=== PATIENT | male | born 1960 | race Caucasian/White ===

== ENCOUNTER 2016-10-16 20:41 | Emergency (ER) | payer MEDICARE, OTHER, SELFPAY ==
[~2016-10-16 20:41] MED LIST: *DENIES; ASAB PO; ASABAYER PO; BACDS PO; BC HEADACHE PO; BISR PR; BUM1 PO; CARD60 PO; CEFT5 PO; CIP5 PO; CLEOCIN300 MG PO; DIGITEK0.125 MG PO; DIGITEK0.25 MG PO; ELIQUIS 5 MG TAB5 MG PO; FLUCON1 PO; FOLIC PO; IODOSORB TOP; K-TABS10 MEQ PO; LOP25 PO; MIRALAXPKT PO; MULTIVITAMI1 PO; P10 PO; PROTONIX PO; ROCEPHIN IM; ROXICODONE30 MG PO; SOMATAB PO; SYN.025B PO; T PO
[2016-10-16 20:47] LABS: BASOPHILS 0.5 %; BASOPHILS ABSOLUTE 0.05 10/3/uL (0.0-0.16); EOSINOPHILS 0.4 %; EOSINOPHILS ABSOLUTE 0.04 10/3/uL (0.0-0.53); ER CBC TAT 0 Hrs 03 Mins; HEMATOCRIT 39.9 % (40.0-51.0); HEMOGLOBIN 13.6 g/dL (13.6-17.8); IMMATURE GRANULOCYTES 0.2 %; IMMATURE GRANULOCYTES ABSOLUTE 0.02 10/3/uL (0.0-0.11); LYMPHOCYTES 10.3 %; LYMPHOCYTES ABSOLUTE 1.02 10/3/uL (0.67-4.30); MANUAL DIFF NO %; MEAN CORPUS HGB CONC 34.1 g/dL (32.0-36.0); MEAN CORPUSCULAR HEMOGLOB 31.2 pg (26.0-34.0); MEAN CORPUSCULAR VOLUME 91.5 fL (80-100); MEAN PLATELET VOLUME 8.8 fL (9.2-13.0); MONOCYTES 8.6 %; MONOCYTES ABSOLUTE 0.85 10/3/uL (0.21-1.20); NEUTROPHILS ABSOLUTE 7.96 10/3/uL (2.02-8.40); PLATELET COUNT 294 10/3/uL (150-400); RED CELL COUNT 4.36 10/6/uL (4.7-6.1); WHITE BLOOD CELLS 9.9 10/3/uL (4.5-10.5)
[2016-10-16 20:56] LABS: ASCORBIC ACID (UR NOT ORDER) NEG (NEG); BILIRUBIN, URINE NEGATIVE (NEG); ER URINALYSIS TAT 0 Hrs 13 Mins; KETONE, URINE NEGATIVE (NEG); LEUKOCYTE ESTERASE(NOT OR LARGE (NEG); NITRITE (URINE) POS (NEG); WBC (NOT ORDERED) (RFLEX) 177 (0-5)
[2016-10-16 21:02] LABS: A/G RATIO 0.8 (0.7-1.9); ALBUMIN 2.8 G/DL (3.5-5.0); BUN (BLOOD UREA NITROGEN) 8 MG/DL (6-23); CALCIUM, SERUM 8.7 MG/DL (8.5-10.4); CHLORIDE, SERUM 107 MMOL/L (96-112); CO2 (CARBON DIOXIDE) 28 MMOL/L (24-34); CREATININE 0.83 MG/DL (0.70-1.30); GFR AFRICAN AMERICAN 115 ML/MIN (>=60); GFR NON AFRICAN AMERICAN 99 ML/MIN (>=60); GLOBULIN 3.6 G/DL (2.5-4.1); POTASSIUM, SERUM 3.4 MMOL/L (3.5-5.3); SGOT(AST) 16 U/L (5-40); SGPT(ALT) 23 U/L (5-65); SODIUM, SERUM 141 MMOL/L (135-148); TOTAL BILIRUBIN 1.5 MG/DL (0-1.2); TOTAL PROTEIN 6.4 G/DL (6.0-8.5)
[2016-10-16 21:03] LABS: ALKALINE PHOSPHATASE 93 U/L (45-117); GLUCOSE, SERUM 131 MG/DL (60-99)
[2017-02-10] MEDS ORDERED: ROXICODONE30 MG PO (21:25)
[2017-02-23] MEDS ORDERED: XARELTO15 MG PO (10:31)
[2017-02-23] MEDS ORDERED: X5 PO (10:33)
[2017-02-23] MEDS ORDERED: CORDARONE PO ×2 (10:35→10:37)
[2017-02-23] MEDS ORDERED: CIP5 PO (10:35)
[2017-02-23] MEDS ORDERED: CORTEF20 MG PO (10:38)
[2017-02-23] MEDS ORDERED: MIRALAX POWDER1 PKT PO (10:40)
[2017-03-05] MEDS ORDERED: DSS PO (11:10)
[2017-03-05] MEDS ORDERED: ZYVOXPO PO (11:10)
[2017-03-05] MEDS ORDERED: MIRALAX POWDER1 PKT PO (11:11)
[2017-03-06] MEDS ORDERED: D.O.S.100 MG PO (14:10)
[2017-03-06] MEDS ORDERED: CORDARONE PO (14:10)
[2017-03-06] MEDS ORDERED: ZYVOXPO PO (14:11)
[2017-03-06] MEDS ORDERED: CORTEF20 MG PO (14:11)
[2017-03-06] MEDS ORDERED: ROXICODONE30 MG PO (14:12)
[2017-03-06] MEDS ORDERED: MIRALAX POWDER1 PKT PO (14:12)
[2017-03-06] MEDS ORDERED: XARELTO15 MG PO (14:13)
[2017-03-06] MEDS ORDERED: XARELTO20 MG PO (14:13)
[2017-03-13] MEDS ORDERED: L40 PO (12:14)
[2017-03-13] MEDS ORDERED: PROAMAT5 PO (12:15)
== END 2016-10-16 23:15 | disposition home or self-care (01) ==
LOC: ER 20:41
PROVIDERS: Emergency Medicine
DX: R11.10 Vomiting, unspecified (principal); R19.7 Diarrhea, unspecified; N39.0 Urinary tract infection, site not specified; Z88.1 Allergy status to other antibiotic agents; Z88.8 Allergy status to other drugs, medicaments and biological substances; Z79.82 Long term (current) use of aspirin; Z79.899 Other long term (current) drug therapy
CPT/HCPCS: 80053; 81001; 83690; 85025; 87077; 87086; 87186; 96374; 99284; A9270-GY; J1170; J2405

== ENCOUNTER 2016-11-12 09:51 | Inpatient (IN) | payer MEDICARE, OTHER, SELFPAY ==
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
--- NOTE | ~2016-11-12 | DS ---
Discharge Summary [place] [id number] [facility] [place]. [address] NAME: MANNY JOHNSON : 60 STATUS : DIS IN PAT#: [id number] AGE: 55 ADM/REG DATE : 11/12/16 MR#: [id number] REPORT SERV DATE: 11/19/16 DICTATED BY: VILMA ORTIZ DATE: 11/18/16 REPORT STATUS : Draft TRANSCRIBED BY: SHAHRAM DATE: 11/18/16 ADMISSION DATE: 11/12/2016 DISCHARGE DATE: 11/18/2016 PRINCIPAL DIAGNOSIS: Complicated urinary tract infection, due to indwelling Garvey catheter. SECONDARY DIAGNOSES: Neurogenic bladder, due to quadriplegia, nausea, vomiting, with diarrhea. HISTORY OF PRESENT ILLNESS: See Dr. Whiting's dictation 11/12/2016. HOSPITAL COURSE: The patient was admitted with complaint of nausea, vomiting, and diarrhea. However, found to have a severe UTI associated with chronic Garvey catheter that grew out Citrobacter freundii. There was a concern based on his blood pressure that he was in septic shock. He did in fact have leukocytosis, but was not tachycardic and had no organ dysfunction. As it turned out, he simply was volume depleted. After volume resuscitation, he was doing better, able to go to the floor, continued to recover, finished his antibiotic course. Arrangements were made to resume home health and he was able to be released on 11/18/2016, in satisfactory condition with diet as tolerated, and activity as tolerated. Follow up with Dr. Christopher Cruz, his primary care provider in one to two weeks. He had a change in his pain management however, and put on OxyContin 20 mg q.8 hours, with Percocet 10 q.4 hours p.r.n. to optimize chronic pain relief with breakthrough pain control. He did have good success with that for the last day he was here. DICTATED BY: Musa Aaron/SHAHRAM Vilma Ortiz M.D. / [id number] CC: Vilma Ortiz M.D. Christopher Cruz M.D.
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
--- NOTE | ~2016-11-12 | CN ---
Consultation Report [facility] [address] [place]. [address] NAME: MANNY JOHNSON : 60 STATUS : ADM IN [facility]#: [id number] AGE: 55 ADM/REG DATE : 11/12/16 MR#: [id number] REPORT SERV DATE: 11/13/16 DICTATED BY: DANNA SORENSON DATE: 11/13/16 REPORT STATUS : Draft TRANSCRIBED BY: MODL DATE: 11/13/16 GI CONSULTATION DATE OF CONSULTATION: 11/12/2016 REASON FOR CONSULTATION: Proctitis. HISTORY OF PRESENT ILLNESS: Mr. Johnson is a 55-year-old gentleman with a history of quadriplegia, atrial fibrillation, and adrenal insufficiency. He has had complications secondary to his quadriplegia including neurogenic bladder, chronic decubital ulcers, history of MRSA cellulitis. He presented to [facility] with worsening shortness of breath, possible sepsis, and had a CT scan performed, which showed some thickening of the rectal wall in the upper portion of the rectum with some surrounding edema. No clear inflammatory stranding however, stomach and duodenal appeared normal. He also was noted to have atrophic pancreas, previously atrophic kidneys with some nonobstructing stones. No lymphadenopathy. He never had a colonoscopy in the past. He was last seen in consultation back in April of last year. He denies any rectal bleeding or GI complaints at this time. Although, he is interested in having colonoscopy performed. PAST MEDICAL HISTORY: Quadriplegia, adrenal insufficiency, atrial fibrillation, kidney stones, hypertension, neurogenic bladder, MRSA cellulitis. PAST SURGICAL HISTORY: Cholecystectomy, right femur surgery. SOCIAL HISTORY: No tobacco use. Occasional alcohol and marijuana use. He is able to mobilize via wheelchair. FAMILY HISTORY: Family history of malignancy. MEDICATIONS: Reviewed. ALLERGIES: REVIEWED. PHYSICAL EXAMINATION: VITAL SIGNS: The patient is afebrile. His vitals appear to be stable. GENERAL: Currently, he is well developed, well nourished, in no acute distress. HEENT: Atraumatic, normocephalic. Anicteric. Mucous membranes moist. CARDIAC: S1, S2. CHEST: Clear. ABDOMEN: Soft, nontender, and nondistended. Bowel sounds normoactive. LABORATORY DATA: Show WBC 14.9, hemoglobin 15, hematocrit 44, platelets 305. INR is 1.2. Sodium 141, potassium 4, chloride 108, bicarb 22, BUN 10, creatinine 1.22, glucose 123. CT scan as dictated above. Consultation Report [facility] [place]. [address] NAME: MANNY JOHNSON : 60 STATUS : ADM IN PAT#: [id number] AGE: 55 ADM/REG DATE : 11/12/16 MR#: [id number] REPORT SERV DATE: 11/13/16 DICTATED BY: DANNA SORENSON DATE: 11/13/16 REPORT STATUS : Draft TRANSCRIBED BY: SHAHRAM DATE: 11/13/16 IMPRESSION AND PLAN: Nonspecific proctitis, would warrant a colonoscopy at some point, and he is agreeable to do this. However, this can be done as an outpatient and would like to have his acute issues be resolved prior to performing elective colonoscopy. I reviewed the procedure, indications, risks, benefits, alternatives, and he is agreeable to come to the clinic first after his admission/discharge to discuss the above again. BAY/SHAHRAM Danna Sorenson MD / [id number] CC: MD Christopher Uriarte M.D.
[2016-11-12 10:31] LABS: BASOPHILS 0.2 %; BASOPHILS ABSOLUTE 0.03 10/3/uL (0.0-0.16); EOSINOPHILS 0.1 %; EOSINOPHILS ABSOLUTE 0.01 10/3/uL (0.0-0.53); HEMATOCRIT 44.4 % (40.0-51.0); IMMATURE GRANULOCYTES 0.2 %; IMMATURE GRANULOCYTES ABSOLUTE 0.03 10/3/uL (0.0-0.11); LYMPHOCYTES 19.6 %; LYMPHOCYTES ABSOLUTE 2.91 10/3/uL (0.67-4.30); MANUAL DIFF NO %; MEAN CORPUS HGB CONC 33.8 g/dL (32.0-36.0); MEAN CORPUSCULAR HEMOGLOB 31.5 pg (26.0-34.0); MEAN CORPUSCULAR VOLUME 93.3 fL (80-100); MEAN PLATELET VOLUME 9.7 fL (9.2-13.0); MONOCYTES 7.9 %; MONOCYTES ABSOLUTE 1.17 10/3/uL (0.21-1.20); NEUTROPHILS ABSOLUTE 10.71 10/3/uL (2.02-8.40); PLATELET COUNT 305 10/3/uL (150-400); RBC DISTRIBUTION WIDTH 14.5 % (12.0-16.0); RED CELL COUNT 4.76 10/6/uL (4.7-6.1); WHITE BLOOD CELLS 14.9 10/3/uL (4.5-10.5)
[2016-11-12 10:37] LABS: INTERNATIONAL NORMAL RATI 1.2 UNITS (-); PARTIAL THROMBO TIME 25.9 SEC (22.5-37.2); PROTIME (NOT ORD) 15.2 SEC (12.0-14.5)
[2016-11-12 10:45] LABS: A/G RATIO 0.8 (0.7-1.9); ALBUMIN 3.2 G/DL (3.5-5.0); ALKALINE PHOSPHATASE 91 U/L (45-117); BUN (BLOOD UREA NITROGEN) 10 MG/DL (6-23); CALCIUM, SERUM 9.4 MG/DL (8.5-10.4); CHLORIDE, SERUM 108 MMOL/L (96-112); CO2 (CARBON DIOXIDE) 22 MMOL/L (24-34); CREATININE 1.22 MG/DL (0.70-1.30); GFR AFRICAN AMERICAN 77 ML/MIN (>=60); GFR NON AFRICAN AMERICAN 66 ML/MIN (>=60); GLOBULIN 4.2 G/DL (2.5-4.1); GLUCOSE, SERUM 123 MG/DL (60-99); SGOT(AST) 20 U/L (5-40); SGPT(ALT) 17 U/L (5-65); SODIUM, SERUM 141 MMOL/L (135-148); TOTAL BILIRUBIN 1.2 MG/DL (0-1.2); TOTAL PROTEIN 7.4 G/DL (6.0-8.5)
[2016-11-12 12:55] LABS: ASCORBIC ACID (UR NOT ORDER) NEG (NEG); BILIRUBIN, URINE SMALL (NEG); ER URINALYSIS TAT 0 Hrs 10 Mins; KETONE, URINE TRACE MG/DL (NEG); LEUKOCYTE ESTERASE(NOT OR LARGE (NEG); NITRITE (URINE) POS (NEG); WBC (NOT ORDERED) (RFLEX) 170 (0-5)
[2016-11-12 13:15] LABS: LACTATE 1.4 MMOL/L (0.3-2.4)
[2016-11-12] MEDS ORDERED: ROXICODONE30 MG PO (13:35)
[2016-11-12 17:21] LABS: FREE T4 1.29 NG/DL (0.76-1.46); PHOSPHORUS, SERUM 2.6 MG/DL (2.5-4.5)
[2016-11-12 17:22] LABS: ACETAMINOPHEN LEVEL (TYLENOL) < 2.0 MCG/ML (10.0-20.0); ALCOHOL < 10 MG/DL (0); SALICYLATE < 1.7 MG/DL (-); TROPONIN I 0.52 NG/ML (<0.05)
[2016-11-12 18:14] LABS: PROCALCITONIN 0.16 ng/mL (<0.5)
[2016-11-13 04:59] LABS: BASOPHILS 0.4 %; BASOPHILS ABSOLUTE 0.03 10/3/uL (0.0-0.16); EOSINOPHILS 1.3 %; HEMATOCRIT 35.6 % (40.0-51.0); HEMOGLOBIN 11.8 g/dL (13.6-17.8); IMMATURE GRANULOCYTES 0.1 %; IMMATURE GRANULOCYTES ABSOLUTE 0.01 10/3/uL (0.0-0.11); LYMPHOCYTES ABSOLUTE 1.48 10/3/uL (0.67-4.30); MEAN CORPUS HGB CONC 33.1 g/dL (32.0-36.0); MEAN CORPUSCULAR HEMOGLOB 31.3 pg (26.0-34.0); MEAN CORPUSCULAR VOLUME 94.4 fL (80-100); MEAN PLATELET VOLUME 9.6 fL (9.2-13.0); MONOCYTES 7.6 %; MONOCYTES ABSOLUTE 0.59 10/3/uL (0.21-1.20); NEUTROPHILS 71.6 %; PLATELET COUNT 207 10/3/uL (150-400); RBC DISTRIBUTION WIDTH 14.6 % (12.0-16.0); RED CELL COUNT 3.77 10/6/uL (4.7-6.1); WHITE BLOOD CELLS 7.8 10/3/uL (4.5-10.5)
[2016-11-13 05:00] LABS: MANUAL DIFF NO %
[2016-11-13 05:19] LABS: BUN (BLOOD UREA NITROGEN) 7 MG/DL (6-23); CHLORIDE, SERUM 114 MMOL/L (96-112); CO2 (CARBON DIOXIDE) 23 MMOL/L (24-34); CREATININE 1.01 MG/DL (0.70-1.30); GFR AFRICAN AMERICAN 97 ML/MIN (>=60); GFR NON AFRICAN AMERICAN 83 ML/MIN (>=60); GLUCOSE, SERUM 104 MG/DL (60-99); SGPT(ALT) 16 U/L (5-65); SODIUM, SERUM 143 MMOL/L (135-148)
[2016-11-13 05:20] LABS: A/G RATIO 0.8 (0.7-1.9); ALBUMIN 2.5 G/DL (3.5-5.0); ALKALINE PHOSPHATASE 63 U/L (45-117); CALCIUM, SERUM 8.1 MG/DL (8.5-10.4); GLOBULIN 3.1 G/DL (2.5-4.1); POTASSIUM, SERUM 4.2 MMOL/L (3.5-5.3); SGOT(AST) 27 U/L (5-40); TOTAL BILIRUBIN 1.7 MG/DL (0-1.2); TOTAL PROTEIN 5.6 G/DL (6.0-8.5)
[2016-11-14 05:48] LABS: BASOPHILS 0.6 %; BASOPHILS ABSOLUTE 0.06 10/3/uL (0.0-0.16); EOSINOPHILS 2.2 %; EOSINOPHILS ABSOLUTE 0.23 10/3/uL (0.0-0.53); HEMOGLOBIN 12.8 g/dL (13.6-17.8); IMMATURE GRANULOCYTES 0.4 %; IMMATURE GRANULOCYTES ABSOLUTE 0.04 10/3/uL (0.0-0.11); LYMPHOCYTES 33.9 %; LYMPHOCYTES ABSOLUTE 3.55 10/3/uL (0.67-4.30); MEAN CORPUS HGB CONC 32.2 g/dL (32.0-36.0); MEAN CORPUSCULAR HEMOGLOB 30.8 pg (26.0-34.0); MEAN CORPUSCULAR VOLUME 95.7 fL (80-100); MEAN PLATELET VOLUME 9.6 fL (9.2-13.0); MONOCYTES 7.5 %; MONOCYTES ABSOLUTE 0.79 10/3/uL (0.21-1.20); NEUTROPHILS 55.4 %; NEUTROPHILS ABSOLUTE 5.81 10/3/uL (2.02-8.40); PLATELET COUNT 230 10/3/uL (150-400); RBC DISTRIBUTION WIDTH 14.9 % (12.0-16.0); RED CELL COUNT 4.16 10/6/uL (4.7-6.1); WHITE BLOOD CELLS 10.5 10/3/uL (4.5-10.5)
[2016-11-14 05:50] LABS: HEMATOCRIT 39.8 % (40.0-51.0); MANUAL DIFF NO %
[2016-11-14 06:00] LABS: A/G RATIO 0.7 (0.7-1.9); ALBUMIN 2.6 G/DL (3.5-5.0); BUN (BLOOD UREA NITROGEN) 7 MG/DL (6-23); CALCIUM, SERUM 8.4 MG/DL (8.5-10.4); CHLORIDE, SERUM 111 MMOL/L (96-112); CO2 (CARBON DIOXIDE) 21 MMOL/L (24-34); CREATININE 1.08 MG/DL (0.70-1.30); GFR AFRICAN AMERICAN 89 ML/MIN (>=60); GFR NON AFRICAN AMERICAN 77 ML/MIN (>=60); GLOBULIN 3.7 G/DL (2.5-4.1); GLUCOSE, SERUM 96 MG/DL (60-99); SGPT(ALT) 20 U/L (5-65); SODIUM, SERUM 143 MMOL/L (135-148); TOTAL PROTEIN 6.3 G/DL (6.0-8.5)
[2016-11-14 06:02] LABS: ALKALINE PHOSPHATASE 76 U/L (45-117); SGOT(AST) 24 U/L (5-40); TOTAL BILIRUBIN 2.2 MG/DL (0-1.2)
[2016-11-14 07:17] LABS: PROCALCITONIN 0.16 ng/mL (<0.5)
[2016-11-15 05:32] LABS: BASOPHILS 0.6 %; BASOPHILS ABSOLUTE 0.03 10/3/uL (0.0-0.16); EOSINOPHILS 3.2 %; EOSINOPHILS ABSOLUTE 0.15 10/3/uL (0.0-0.53); HEMOGLOBIN 10.1 g/dL (13.6-17.8); IMMATURE GRANULOCYTES 0.2 %; IMMATURE GRANULOCYTES ABSOLUTE 0.01 10/3/uL (0.0-0.11); LYMPHOCYTES 29.8 %; LYMPHOCYTES ABSOLUTE 1.39 10/3/uL (0.67-4.30); MANUAL DIFF NO %; MEAN CORPUS HGB CONC 32.6 g/dL (32.0-36.0); MEAN CORPUSCULAR HEMOGLOB 30.8 pg (26.0-34.0); MEAN CORPUSCULAR VOLUME 94.5 fL (80-100); MEAN PLATELET VOLUME 9.5 fL (9.2-13.0); MONOCYTES 6.9 %; MONOCYTES ABSOLUTE 0.32 10/3/uL (0.21-1.20); NEUTROPHILS 59.3 %; NEUTROPHILS ABSOLUTE 2.77 10/3/uL (2.02-8.40); PLATELET COUNT 171 10/3/uL (150-400); RBC DISTRIBUTION WIDTH 14.8 % (12.0-16.0); RED CELL COUNT 3.28 10/6/uL (4.7-6.1); WHITE BLOOD CELLS 4.7 10/3/uL (4.5-10.5)
[2016-11-15 05:46] LABS: BUN (BLOOD UREA NITROGEN) 7 MG/DL (6-23); CALCIUM, SERUM 8.3 MG/DL (8.5-10.4); CHLORIDE, SERUM 115 MMOL/L (96-112); CO2 (CARBON DIOXIDE) 24 MMOL/L (24-34); CREATININE 0.89 MG/DL (0.70-1.30); GFR AFRICAN AMERICAN 112 ML/MIN (>=60); GFR NON AFRICAN AMERICAN 96 ML/MIN (>=60); GLUCOSE, SERUM 97 MG/DL (60-99); PHOSPHORUS, SERUM 3.2 MG/DL (2.5-4.5); POTASSIUM, SERUM 3.8 MMOL/L (3.5-5.3); SODIUM, SERUM 143 MMOL/L (135-148)
[2016-11-16 05:09] LABS: BASOPHILS 0.7 %; BASOPHILS ABSOLUTE 0.03 10/3/uL (0.0-0.16); EOSINOPHILS 3.7 %; EOSINOPHILS ABSOLUTE 0.15 10/3/uL (0.0-0.53); HEMATOCRIT 31.8 % (40.0-51.0); HEMOGLOBIN 10.2 g/dL (13.6-17.8); IMMATURE GRANULOCYTES 0.5 %; IMMATURE GRANULOCYTES ABSOLUTE 0.02 10/3/uL (0.0-0.11); LYMPHOCYTES 30.3 %; LYMPHOCYTES ABSOLUTE 1.24 10/3/uL (0.67-4.30); MEAN CORPUS HGB CONC 32.1 g/dL (32.0-36.0); MEAN CORPUSCULAR VOLUME 96.7 fL (80-100); MEAN PLATELET VOLUME 9.5 fL (9.2-13.0); MONOCYTES 9.3 %; MONOCYTES ABSOLUTE 0.38 10/3/uL (0.21-1.20); NEUTROPHILS 55.5 %; NEUTROPHILS ABSOLUTE 2.27 10/3/uL (2.02-8.40); PLATELET COUNT 174 10/3/uL (150-400); RBC DISTRIBUTION WIDTH 14.9 % (12.0-16.0); RED CELL COUNT 3.29 10/6/uL (4.7-6.1); WHITE BLOOD CELLS 4.1 10/3/uL (4.5-10.5)
[2016-11-16 05:10] LABS: MANUAL DIFF NO %
[2016-11-16 05:24] LABS: BUN (BLOOD UREA NITROGEN) 6 MG/DL (6-23); CALCIUM, SERUM 8.4 MG/DL (8.5-10.4); CHLORIDE, SERUM 114 MMOL/L (96-112); CO2 (CARBON DIOXIDE) 22 MMOL/L (24-34); CREATININE 0.79 MG/DL (0.70-1.30); GFR AFRICAN AMERICAN 117 ML/MIN (>=60); GFR NON AFRICAN AMERICAN 101 ML/MIN (>=60); GLUCOSE, SERUM 91 MG/DL (60-99); PHOSPHORUS, SERUM 3.3 MG/DL (2.5-4.5); POTASSIUM, SERUM 4.3 MMOL/L (3.5-5.3); SODIUM, SERUM 142 MMOL/L (135-148)
[2016-11-16 15:01] LABS: ALBUMIN 2.7 G/DL (3.5-5.0); DIRECT BILIRUBIN 0.3 MG/DL (0.0-0.4); TOTAL PROTEIN 5.3 G/DL (6.0-8.5)
[2016-11-16 15:03] LABS: TOTAL BILIRUBIN 1.3 MG/DL (0-1.2)
[2016-11-18 08:58] LABS: RETICULOCYTE COUNT 1.3 % (0.5-2.5); RETICULOCYTE COUNT ABSOLUTE 45.6 10/3/uL (20.2-119.8)
[2016-11-18 09:26] LABS: % IRON SAT 38 % (20-50); FERRITIN 122 NG/ML (26-388); IRON BINDING CAPACITY 131 MCG/DL (250-450); IRON, SERUM 50 MCG/DL (35-150)
[2016-11-18] MEDS ORDERED: PERCOCET 10/3251 TAB PO (11:10)
[2016-11-18] MEDS ORDERED: OXYCON20 PO (11:11)
[2017-02-10] MEDS ORDERED: ROXICODONE30 MG PO (21:25)
[2017-02-23] MEDS ORDERED: XARELTO15 MG PO (10:31)
[2017-02-23] MEDS ORDERED: X5 PO (10:33)
[2017-02-23] MEDS ORDERED: CORDARONE PO ×2 (10:35→10:37)
[2017-02-23] MEDS ORDERED: CIP5 PO (10:35)
[2017-02-23] MEDS ORDERED: CORTEF20 MG PO (10:38)
[2017-02-23] MEDS ORDERED: MIRALAX POWDER1 PKT PO (10:40)
[2017-03-05] MEDS ORDERED: ZYVOXPO PO (11:10)
[2017-03-05] MEDS ORDERED: DSS PO (11:10)
[2017-03-05] MEDS ORDERED: MIRALAX POWDER1 PKT PO (11:11)
[2017-03-06] MEDS ORDERED: D.O.S.100 MG PO (14:10)
[2017-03-06] MEDS ORDERED: CORDARONE PO (14:10)
[2017-03-06] MEDS ORDERED: CORTEF20 MG PO (14:11)
[2017-03-06] MEDS ORDERED: ZYVOXPO PO (14:11)
[2017-03-06] MEDS ORDERED: ROXICODONE30 MG PO (14:12)
[2017-03-06] MEDS ORDERED: MIRALAX POWDER1 PKT PO (14:12)
[2017-03-06] MEDS ORDERED: XARELTO20 MG PO (14:13)
[2017-03-06] MEDS ORDERED: XARELTO15 MG PO (14:13)
[2017-03-13] MEDS ORDERED: L40 PO (12:14)
[2017-03-13] MEDS ORDERED: PROAMAT5 PO (12:15)
== END 2016-11-18 14:52 | disposition home or self-care (01) | DRG 698 ==
LOC: ER 09:51 → MIC 14:46 → 1SO 11-15 14:34
PROVIDERS: Emergency Medicine; Hospitalist; Internal Medicine; Internal Medicine Pulmonary Disease
PROC: 02HV33Z Insertion of Infusion Device into Superior Vena Cava, Percutaneous Approach (ICD-10-PCS; principal; 2016-11-12)
PROC: 4A02X4A Measurement of Cardiac Electrical Activity, Guidance, External Approach (ICD-10-PCS; 2016-11-12)
DX: T83.518A Infection and inflammatory reaction due to other urinary catheter, initial encounter (principal); A41.9 Sepsis, unspecified organism; G82.50 Quadriplegia, unspecified; N39.0 Urinary tract infection, site not specified; N31.9 Neuromuscular dysfunction of bladder, unspecified; I48.2 Chronic atrial fibrillation; Z99.3 Dependence on wheelchair; K62.89 Other specified diseases of anus and rectum
CPT/HCPCS: 36569; 71010; 74176; 80048; 80053; 80076; 80307; 81001; 82533; 82607; 82728; 83540; 83550; 83605; 83615; 83690; 83735; 83880; 84100; 84145; 84439; 84443; 84484; 85025; 85045; 85610; 85730; 87040; 87045; 87046; 87046-59; 87077; 87086; 87186; 87328; 87329; 87493; 87493-59; 87641; 87899; 87899-59; 89055; 93005; 96365; 96375; 99285; A9270-GY; C1751; C9113; J0692; J1170; J2405; J2543; J3370; J3475; P9045; P9047